=== PATIENT | female | born 1995 | race American Indian/Alaskan Native ===

== ENCOUNTER 2020-05-21 20:06 | Emergency (ER) | payer SELFPAY ==
[2020-05-21 21:29] LABS: Basophils % (Auto) 0.4 % (0.0-1.8); Eosinophils % (Auto) 0.4 % (0.0-4.3); Hematocrit 33.4 % (30.3-42.9); Hemoglobin 11.1 gm/dl (10.1-14.3); Lymphocytes # (Auto) 1.8 K/mm3 (1.2-5.4); Lymphocytes % (Auto) 24.2 % (13.4-35.0); Mean Corpuscular HGB Conc 33 % (30-34); Mean Corpuscular Volume 89 fl (79-97); Monocytes # (Auto) 0.9 K/mm3 (0.0-0.8); Monocytes % (Auto) 11.6 % (0.0-7.3); Platelet Count 324 K/mm3 (140-440); Red Blood Count 3.75 M/mm3 (3.65-5.03); Red Cell Distribution Width 13.5 % (13.2-15.2)
--- NOTE | 2020-05-21 21:41 | Emergency Department Report ---
ED General Adult HPI - General Chief complaint: Altered Mental Status Stated complaint: MH EVAL/COMBATIVE Time Seen by Provider: 05/21/20 21:18 Source: patient, family, EMS Mode of arrival: Ambulatory Limitations: No Limitations - History of Present Illness Initial comments: Patient is 24-year-old female with history of schizoaffective disorder. Patient brought to the emergency room from [facility] for evaluation of possible dehydration and delirium. Physician who is following the patient brought in his note that his concern that her altered mental status might be from delirium and he wanted to rule out that. Patient is not communicating. Patient vital signs stable so far. - Related Data Home Medications Medication Instructions Recorded Confirmed Last Taken Benztropine [Cogentin] 1 mg PO BID 05/21/20 05/21/20 Unknown Allergies Allergy/AdvReac Type Severity Reaction Status Date / Time No Known Allergies Allergy Verified 05/21/20 22:32 ED Review of Systems ROS: Stated complaint: MH EVAL/COMBATIVE Other details as noted in HPI Comment: Unobtainable due to pts medical conditions ED Past Medical Hx - Past Medical History Previous Medical History?: Yes Hx Psychiatric Treatment: Yes (schizophrenia, bipolar) - Social History Smoking Status: Unknown if ever smoked - Medications Home Medications: Home Medications Medication Instructions Recorded Confirmed Last Taken Type Benztropine [Cogentin] 1 mg PO BID 05/21/20 05/21/20 Unknown History ED Physical Exam - General Limitations: No Limitations General appearance: alert, anxious, other (Agitated) - Head Head exam: Present: atraumatic, normocephalic, normal inspection - Eye Eye exam: Present: normal appearance - ENT ENT exam: Present: normal exam - Neck Neck exam: Present: normal inspection, full ROM. Absent: tenderness, meningismus - Respiratory Respiratory exam: Present: normal lung sounds bilaterally - Cardiovascular Cardiovascular Exam: Present: tachycardia - GI/Abdominal GI/Abdominal exam: Present: soft, normal bowel sounds. Absent: distended, tenderness, rigid, organomegaly, mass, bruit, pulsatile mass, hernia - Extremities Exam Extremities exam: Present: normal inspection, full ROM, normal capillary refill. Absent: pedal edema, calf tenderness - Back Exam Back exam: Present: normal inspection, full ROM. Absent: CVA tenderness (R), CVA tenderness (L) - Neurological Exam Neurological exam: Present: alert, altered - Psychiatric Psychiatric exam: Present: agitated, anxious - Skin Skin exam: Present: warm, dry, intact ED Course Vital Signs 05/21/20 05/21/20 05/21/20 20:49 21:43 23:43 Temperature 98.1 F Pulse Rate 113 H 108 H 111 H Respiratory 18 18 18 Rate Blood Pressure 131/73 Blood Pressure 108/66 [Left] O2 Sat by Pulse 99 99 99 Oximetry 05/22/20 00:43 Temperature Pulse Rate 106 H Respiratory 18 Rate Blood Pressure Blood Pressure [Left] O2 Sat by Pulse 99 Oximetry ED Medical Decision Making - Lab Data Result diagrams: 05/21/20 21:21 05/21/20 21:21 Critical care attestation.: If time is entered above; I have spent that time in minutes in the direct care of this critically ill patient, excluding procedure time. ED Disposition Clinical Impression: Altered mental status, Dehydration, Schizoaffective disorder Disposition: DC-07 LEFT AGAINST MED ADVICE Is pt being admited?: No Condition: Stable Instructions: Dehydration, Adult, [id number] Referrals: PRIMARY CARE, [Primary Care Provider] - 3-5 Days
[2020-05-21 21:58] LABS: Alanine Aminotransferase 50 units/L (7-56); Albumin 3.7 g/dL (3.9-5); Blood Urea Nitrogen 7 mg/dL (7-17); Hemolysis Index 2
[2020-05-21 22:00] LABS: BUN/Creatinine Ratio 10
[2020-05-21] MEDS ORDERED: SODIUM CHLORIDE 0.9% 1000 ML 1,000 ML IV ONE (22:11)
[2020-05-21] MEDS ORDERED: ONDANSETRON 4 MG/2 ML INJ IV ONE (22:11)
--- NOTE | 2020-05-21 22:17 | XRay Report ---
CHEST 1 VIEW 05/21/2020 8:55 PM INDICATION / CLINICAL INFORMATION: Medical Clearance Psych. COMPARISON: None available. FINDINGS: SUPPORT DEVICES: None. HEART / MEDIASTINUM: No significant abnormality. LUNGS / PLEURA: No significant pulmonary or pleural abnormality. No pneumothorax. ADDITIONAL FINDINGS: No significant additional findings. IMPRESSION: 1. No acute findings. Signer Name: Jerson Sharpe MD Signed: 05/21/2020 10:13 PM Workstation Name: [id number]
[2020-05-21] MEDS: POTASSIUM CHLORIDE 10 MEQ 10 MEQ/100 ML BAG IV SCH (23:09)
[2020-05-21 23:10] LABS: Amphetamine Screen,Urine PRESUMPTIVE NEGATIVE; Benzodiazepines Screen,Urine PRESUMPTIVE NEGATIVE; Cannabinoid Screen,Urine PRESUMPTIVE NEGATIVE; Cocaine Screen,Urine PRESUMPTIVE NEGATIVE; Methadone Screen,Urine PRESUMPTIVE NEGATIVE; Opiate Screen,Urine PRESUMPTIVE NEGATIVE
[2020-05-21 23:18] LABS: Bilirubin,Urine NEG (Negative); Blood,Urine LG (Negative); Color,Urine Yellow (Yellow); Mucus,Urine FEW /HPF
[2020-05-22] MEDS ORDERED: SODIUM CHLORIDE 0.9% 1000 ML 1,000 ML IV ONE (00:07)
[2020-05-22] MEDS: POTASSIUM CHLORIDE 10 MEQ 10 MEQ/100 ML BAG IV SCH (00:30)
[2020-05-22 02:22] VITALS: BP 108/66
== END 2020-05-22 01:33 | disposition left against medical advice (07) ==
LOC: ED 20:06
DX: R41.82 Altered mental status, unspecified (principal); F25.0 Schizoaffective disorder, bipolar type; E86.0 Dehydration; Z79.899 Other long term (current) drug therapy
CPT/HCPCS: 36415; 71045; 80053; 80307; 81001; 85025; 96360; 96361; 99284; J3480; J7030; 80320; G0480